=== PATIENT | female | born 1960 | race Caucasian/White ===

== ENCOUNTER → 2016-12-07 | Outpatient (CLI) | payer BC ==
[~2016-12-07] MED LIST: HYOS1TAB PO; LRT5 PO; MULT-506 PO
--- NOTE | 2016-12-07 13:58 | MAMMOGRAPHY REPORT ---
BILATERAL DIGITAL SCREENING MAMMOGRAM TOMOSYNTHESIS WITH CAD: 12/07/2016 TECHNIQUE: Breast tomosynthesis in addition to standard 2D mammography was performed. Current study was also evaluated with a Computer Aided Detection (CAD) system. COMPARISON: Comparison is made to exams dated: 12/07/2015 mammogram, 04/10/2014 mammogram, 07/29/2012 mammogram, 01/18/2012 ultrasound, 11/21/2011 ultrasound, and 11/15/2011 mammogram - [facility]. BREAST COMPOSITION: The tissue of both breasts is almost entirely fatty. FINDINGS: No suspicious masses, calcifications, or areas of architectural distortion are noted in ei ther breast. There has been no significant interval change compared to prior exams. IMPRESSION: ACR BI-RADS CATEGORY 1: NEGATIVE There is no mammographic evidence of malignancy. A 1 year screening mammogram is recommended. The pa tient will receive written notification of the results. Approximately 10% of breast cancers are not detected with mammography. A negative mammographic report should not delay biopsy if a clinically suggestive mass is present. Regla Rush M.D. ah/:12/07/2016 07:25:40 Towing Pilot: Mia WU(Chau)(M), [facility] letter sent: Normal 1/2 BI-RADS Code: ACR BI-RADS Category 1: Negative
== END | disposition home or self-care (01) ==
LOC: C.MAMM 07:12
PROVIDERS: ATTEND Obstetrics & Gynecology
DX: Z12.31 Encounter for screening mammogram for malignant neoplasm of breast (principal)

== ENCOUNTER 2017-03-17 11:40 | Emergency (ER) | payer BC ==
[~2017-03-17] VITALS: Ht 154.9 cm; Wt 73.8 kg
[2017-03-17 11:46] VITALS: TEMP 36.9; Ht 154.9 cm; Wt 73.8 kg
[2017-03-17] MEDS ORDERED: ONDANSETRON INJ 2 MG/ML 2 ML VIAL IV PRN (12:15)
[2017-03-17 12:22] LABS: URINE APPEARANCE CLOUDY (CLEAR); URINE BILIRUBIN NEG (NEG); URINE COLOR DK YELLOW; URINE EPITHELIAL CELL AUTO >30 /lpf (0-5); URINE NITRITE NEG (NEG); URINE SPECIFIC GRAVITY 1.028 (1.000-1.030); UROBILINOGEN NEG (NEG); ZZUR CULT IF INDIC CLEAN CATCH YES
[2017-03-17 12:24] LABS: MANUAL MICROSCOPIC REQUIRED? NO; REVIEW REQ? YES
[2017-03-17 12:33] LABS: URINE MUCUS PRESENT (NONE PRSENT)
[2017-03-17 12:34] LABS: BASO % 0.4 %; BASO ABS # 0.03 K/uL (0-0.2); COMPLETE YES; EOS % 0.8 %; HEMATOCRIT 44.1 % (37-47); IG% 0.3 %; LYMPH % 22.2 %; LYMPH ABS # 1.76 K/uL (1.2-3.4); MEAN CELL VOLUME 89.3 fL (80-100); MEAN CORPUSCULAR HEMOGLOBIN 30.6 pg (25-34); MEAN CORPUSCULAR HGB CONC 34.2 g/dl (32-36); MEAN PLATELET VOLUME 10.7 fL (7.4-10.4); MONO % 5.9 %; NEUT % 70.4 %; PLATELET COUNT 304 K/uL (130-400); RED BLOOD COUNT 4.94 M/uL (4.2-5.4); WHITE BLOOD COUNT 7.92 K/uL (4.8-10.8)
[2017-03-17 12:56] LABS: BUN/CREATININE RATIO 15.3 (10-20); CALCIUM 9.3 mg/dl (8.5-10.1); CREATININE 0.79 mg/dl (0.60-1.20); POTASSIUM 3.8 mmol/L (3.5-5.1)
[2017-03-17] MEDS ORDERED: OPTIRAY 320 IV PRN (13:30)
--- NOTE | 2017-03-17 15:12 | DIAGNOSTIC IMAGING REPORT ---
ABDOMEN AND PELVIS CT WITH IV AND ORAL CONTRAST CT DOSE: 436.17 mGy.cm HISTORY: Bilateral lower quadrant abdominal pain with vomiting bilateral lower quad pain, vomiting, thin stools TECHNIQUE: Multiaxial CT images of the abdomen and pelvis were performed following the use of intravenous and oral contrast. A dose lowering technique was utilized adhering to the principles of ALARA. COMPARISON STUDY: CT abdomen and pelvis 09/24/2007. FINDINGS: Mild dependent subsegmental bibasilar atelectasis. There is no pneumatosis or pneumoperitoneum identified. Imaged inferior cardiac chambers are unremarkable. The liver, spleen, gallbladder, pancreas and adrenal glands are within normal limits. Kidneys, ureters and urinary bladder are also unremarkable. Uterus and adnexa demonstrate no acute abdomen. Aorta is normal in course and caliber. No bulky adenopathy. Small duodenal diverticulum. No small bowel obstruction. There is moderate wall thickening of the colon which extends from the mid descending colon through the sigmoid and into the rectum. Mild associated surrounding inflammatory stranding. Slight ahaustral fold pattern seen within this distribution. Mild colonic diverticulosis without diverticulitis. The appendix appears normal. No ascites. Soft tissues are unremarkable. The bones appear intact. 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 IMPRESSION: 1. Moderate wall thickening with surrounding inflammatory stranding extends from the mid descending colon through the rectosigmoid compatible with colitis, likely of infectious or inflammatory etiology. Colon within this distribution demonstrates a somewhat ahaustral fold pattern. Similar pattern of disease was seen on comparison study 09/24/2007. Correlate with history of possible inflammatory bowel disease. 2. Mild colonic diverticulosis without evidence of acute diverticulitis. 3. Normal appendix. Electronically signed by: Charanjit Goldmna M.D. 03/17/2017 3:11 PM Dictated Date/Time: 03/17/2017 3:06 PM
[2017-03-17] MEDS ORDERED: METRONIDAZOLE 250 MG TAB PO STA ×2 (16:36)
[2017-03-17] MEDS ORDERED: CIPROFLOXACIN 500 MG TAB PO STA ×2 (16:36)
[2017-03-17] MEDS ORDERED: NORCO 5/325MG HOME PACK PO ONE (16:45)
[2017-03-17] MEDS ORDERED: ONDANSETRON HOME PACK 4MG OD TAB PO ONE (16:45)
[2017-03-17] MEDS ORDERED: METRONIDAZOLE 500 MG TAB PO STA ×2 (16:57→16:58)
[2017-03-17] MEDS ORDERED: ONDA4TAB10 SL (17:03)
[2017-03-17] MEDS ORDERED: HYDR-5688 PO (17:03)
[2017-03-17] MEDS ORDERED: METR-163 PO (17:03)
[2017-03-17] MEDS ORDERED: CIPR-255 PO (17:03)
[2017-03-17 17:35] VITALS: BP 147/87; PULSE 83; O2SAT 97
--- NOTE | 2017-03-17 18:17 | EMERGENCY ROOM VISIT NOTE ---
History Report prepared by Leonard: Cari Kohli Under the Supervision of: Dr. Kirby Chaparro M.D. First contact with patient: 11:51 Chief Complaint: GI ASSESSMENT Stated Complaint: INTESTINAL PROBLEMS Nursing Triage Summary: Generalized abd pain since before Thanksgiving. Severe cramping that comes and goes. Nausea, vomiting, stool "pencil thin". History of Present Illness The patient is a 56 year old female who presents to the Emergency Room with complaints of lower abdominal pain beginning two and a half weeks ago. The pain is rated at a 5/10 and she describes the pain as cramps that feel like labor pains. The patient reports that she has been going in late to work due to the pain. She reports having a recent colonoscopy that was found to be normal. The patient also reports having vomiting. She states that her stools have been "pencil-thin," but denies black or bloody stool. Pt denies fevers, chills, diaphoresis, visual changes, neck pain, chest pain, breathing difficulties, back pain, melena, hematochezia, urinary symptoms, numbness, weakness, or other complaints. Source of History: patient Onset: two and a half weeks ago Position: abdomen Symptom Intensity: rated at a 5/10 Quality: cramping Associated Symptoms: + vomiting, No fevers Review of Systems See HPI for pertinent positives and negatives. A total of ten systems were reviewed and were otherwise negative. Past Medical & Surgical Surgical Problems: (1) S/P appendectomy (2) S/P tubal ligation Family History No pertinent family history Social History Smoking Status: Never Smoker Smokeless Tobacco Use: No Alcohol Use: none Marital Status: Housing Status: lives with significant other Occupation Status: employed Current/Historical Medications Scheduled Ciprofloxacin Hcl (Cipro), 500 MG PO BID Metronidazole (Flagyl), 500 MG PO TID Ondasetron Odt (Zofran Odt), 4 MG SL Q6H Scheduled PRN Hydrocodone/Acetaminophen 5MG/325MG (Parlier 5MG/325MG), 1-2 TABS PO Q6H PRN for Pain Allergies Coded Allergies: Sulfa Drugs (Unverified Allergy, Severe, SWELLING, 03/17/17) Physical Exam Vital Signs Date Time Temp Pulse Resp B/P (MAP) Pulse Ox O2 Delivery O2 Flow Rate FiO2 03/17/17 17:35 83 147/87 97 03/17/17 15:34 80 12 130/70 03/17/17 14:34 82 140/87 98 Room Air 03/17/17 13:36 76 124/84 97 Room Air 03/17/17 12:12 102 03/17/17 11:46 36.9 93 18 152/87 97 Room Air Physical Exam GENERAL: Awake, alert, well-appearing, in no distress HENT: Normocephalic, atraumatic. Oropharynx unremarkable. EYES: Normal conjunctiva. Sclera non-icteric. NECK: Supple. No nuchal rigidity. FROM. No JVD. RESPIRATORY: Clear to auscultation. CARDIAC: Borderline tachycardia, normal rhythm. Extremities warm and well perfused. Pulses equal. ABDOMEN: Soft, non-distended. Right lower quadrant and left lower quadrant tenderness to palpation. No rebound or guarding. No masses. RECTAL: Deferred. MUSCULOSKELETAL: Chest examination reveals no tenderness. The back is symmetrical on inspection without obvious abnormality. There is no CVA tenderness to palpation. No joint edema. LOWER EXTREMITIES: Calves are equal size bilaterally and non-tender. No edema. No discoloration. NEURO: Normal sensorium. No sensory or motor deficits noted. SKIN: No rash or jaundice noted. Medical Decision & Procedures ER Provider Diagnostic Interpretation: Radiology results as stated below per my review and radiologist interpretation: ABDOMEN AND PELVIS CT WITH IV AND ORAL CONTRAST CT DOSE: 436.17 mGy.cm HISTORY: Bilateral lower quadrant abdominal pain with vomiting bilateral lower quad pain, vomiting, thin stools TECHNIQUE: Multiaxial CT images of the abdomen and pelvis were performed following the use of intravenous and oral contrast. A dose lowering technique was utilized adhering to the principles of ALARA. COMPARISON STUDY: CT abdomen and pelvis 09/24/2007. FINDINGS: Mild dependent subsegmental bibasilar atelectasis. There is no pneumatosis or pneumoperitoneum identified. Imaged inferior cardiac chambers are unremarkable. The liver, spleen, gallbladder, pancreas and adrenal glands are within normal limits. Kidneys, ureters and urinary bladder are also unremarkable. Uterus and adnexa demonstrate no acute abdomen. Aorta is normal in course and caliber. No bulky adenopathy. Small duodenal diverticulum. No small bowel obstruction. There is moderate wall thickening of the colon which extends from the mid descending colon through the sigmoid and into the rectum. Mild associated surrounding inflammatory stranding. Slight ahaustral fold pattern seen within this distribution. Mild colonic diverticulosis without diverticulitis. The appendix appears normal. No ascites. Soft tissues are unremarkable. The bones appear intact. 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 IMPRESSION: 1. Moderate wall thickening with surrounding inflammatory stranding extends from the mid descending colon through the rectosigmoid compatible with colitis, likely of infectious or inflammatory etiology. Colon within this distribution demonstrates a somewhat ahaustral fold pattern. Similar pattern of disease was seen on comparison study 09/24/2007. Correlate with history of possible inflammatory bowel disease. 2. Mild colonic diverticulosis without evidence of acute diverticulitis. 3. Normal appendix. Electronically signed by: Charanjit Goldman M.D. 03/17/2017 3:11 PM Dictated Date/Time: 03/17/2017 3:06 PM Laboratory Results 03/17/17 12:15 Red Blood Count 4.94, Mean Corpuscular Volume 89.3, Mean Corpuscular Hemoglobin 30.6, Mean Corpuscular Hemoglobin Concent 34.2, Mean Platelet Volume 10.7, Neutrophils (%) (Auto) 70.4, Lymphocytes (%) (Auto) 22.2, Monocytes (%) (Auto) 5.9, Eosinophils (%) (Auto) 0.8, Basophils (%) (Auto) 0.4, Neutrophils # (Auto) 5.58, Lymphocytes # (Auto) 1.76, Monocytes # (Auto) 0.47, Eosinophils # (Auto) 0.06, Basophils # (Auto) 0.03 03/17/17 12:15 Test 03/17/17 12:00 03/17/17 12:15 Urine Color DK YELLOW Urine Appearance CLOUDY (CLEAR) Urine pH 5.0 (4.5-7.5) Urine Specific [place] 1.028 (1.000-1.030) Urine Protein NEG (NEG) Urine Glucose (UA) NEG (NEG) Urine Ketones TRACE (NEG) Urine Occult Blood NEG (NEG) Urine Nitrite NEG (NEG) Urine Bilirubin NEG (NEG) Urine Urobilinogen NEG (NEG) Urine Leukocyte Esterase SMALL (NEG) Urine WBC (Auto) 5-10 /hpf (0-5) Urine RBC (Auto) 0-4 /hpf (0-4) Urine Hyaline Casts (Auto) 1-5 /lpf (0-5) Urine Epithelial Cells (Auto) >30 /lpf (0-5) Urine Bacteria (Auto) 2+ (NEG) Urine Pathogenic Casts /lpf (0) Urine Mucus PRESENT (NONE PRSENT) White Blood Count 7.92 K/uL (4.8-10.8) Red Blood Count 4.94 M/uL (4.2-5.4) Hemoglobin 15.1 g/dL (12.0-16.0) Hematocrit 44.1 % (37-47) Mean Corpuscular Volume 89.3 fL (80-100) Mean Corpuscular Hemoglobin 30.6 pg (25-34) Mean Corpuscular Hemoglobin Concent 34.2 g/dl (32-36) Platelet Count 304 K/uL (130-400) Mean Platelet Volume 10.7 fL (7.4-10.4) Neutrophils (%) (Auto) 70.4 % Lymphocytes (%) (Auto) 22.2 % Monocytes (%) (Auto) 5.9 % Eosinophils (%) (Auto) 0.8 % Basophils (%) (Auto) 0.4 % Neutrophils # (Auto) 5.58 K/uL (1.4-6.5) Lymphocytes # (Auto) 1.76 K/uL (1.2-3.4) Monocytes # (Auto) 0.47 K/uL (0.11-0.59) Eosinophils # (Auto) 0.06 K/uL (0-0.5) Basophils # (Auto) 0.03 K/uL (0-0.2) RDW Standard Deviation 40.1 fL (36.4-46.3) RDW Coefficient of Variation 12.4 % (11.5-14.5) Immature Granulocyte % (Auto) 0.3 % Immature Granulocyte # (Auto) 0.02 K/uL (0.00-0.02) Anion Gap 6.0 mmol/L (3-11) Est Creatinine Clear Calc Drug Dose 73.0 ml/min Estimated GFR () 97.0 Estimated GFR (Non- 83.7 BUN/Creatinine Ratio 15.3 (10-20) Calcium Level 9.3 mg/dl (8.5-10.1) Total Bilirubin 0.6 mg/dl (0.2-1) Direct Bilirubin 0.1 mg/dl (0-0.2) Aspartate Amino Transf (AST/SGOT) 23 U/L (15-37) Alanine Aminotransferase (ALT/SGPT) 32 U/L (12-78) Alkaline Phosphatase 104 U/L (45-117) Total Protein 7.7 gm/dl (6.4-8.2) Albumin 4.0 gm/dl (3.4-5.0) Lipase 153 U/L (73-393) Laboratory results reviewed by me Medications Administered Medications (Trade) Dose Ordered Sig/Imani Route Start Time Stop Time Status Last Admin Dose Admin Ciprofloxacin (Cipro Tab) 500 mg NOW STAT PO 03/17/17 16:36 03/17/17 16:38 DC 03/17/17 16:50 500 MG Ondansetron HCl (ZOFRAN ODT 4MG Home Pack) 1 homepack UD ONCE PO 03/17/17 16:45 03/17/17 16:46 DC 03/17/17 16:51 1 HOMEPACK Acetaminophen/ Hydrocodone Bitart (Parlier 5/325mg Home Pack) 1 homepack UD ONCE PO 03/17/17 16:45 03/17/17 16:46 DC 03/17/17 16:53 1 HOMEPACK Ciprofloxacin (Cipro Tab) 500 mg NOW STAT PO 03/17/17 16:36 03/17/17 16:38 DC 03/17/17 16:50 500 MG Metronidazole (Flagyl Tab) 500 mg NOW STAT PO 03/17/17 16:57 03/17/17 16:58 DC 03/17/17 17:01 500 MG Metronidazole (Flagyl Tab) 500 mg NOW STAT PO 03/17/17 16:58 03/17/17 16:59 DC 03/17/17 17:01 500 MG ED Course 1203: The patient was evaluated in room C7. A complete history and physical exam was performed. 1215: Ordered Zofran Inj 4 mg IV. 1636: Ordered Flagyl Tab 500 mg PO, Cipro Tab 500 mg PO, Flagyl Tab 500 mg PO, Cipro Tab 500 mg PO. 1637: Discussed the patient's case with Dr. Carter. Dr. Carter recommended Cipro Flagyl and that the patient follow-up on Sunday. 1645: Ordered Hydrocodone Bitart Acetaminophen 1 homepack PO, Ondansetron HCl 1 homepack PO. 1650: I reevaluated the patient. Discussed results and discharge instructions: She verbalized understanding and agreement. The patient is ready for discharge. Medical Decision Triage Nursing notes reviewed. The patient's presentation and history were concerning for abdominal pain. Etiologies such as diverticulitis, Obstruction, inflammatory bowel disease, renal colic, PUD, biliary pathology, pancreatitis, mesenteric ischemia, aortic pathology, infections, genitourinary, UTI, perforated viscus, appendicitis, as well as others were entertained. The patient was evaluated. Abdominal examination as above. She is tender in the lower quadrant. The patient underwent CT imaging. Blood work was unremarkable. CT imaging didn't reveal evidence of colitis. I did consult with gastroenterology. Cipro, Flagyl, and symptomatically treatment was recommended with close outpatient follow-up. The patient will contact the office on Sunday. She was given Cipro, Flagyl, Zofran, and Parlier to use . If she worsens she will be back. Patient felt very comfortable. I gave my usual and customary discussion regarding this issue. By the evaluation outlined above other emergent etiologies such as those listed in the differential, as well as others, were deemed relatively unlikely. The patient was educated about the findings as listed above. All questions were answered and the patient was pleased with the treatment. Return instructions were outlined and the patient was discharged in stable condition. The patient was referred to GI for follow-up for a recheck of the current condition. Medication Reconcilliation Current Medication List: was personally reviewed by me Blood Pressure Screening Patient's blood pressure: Elevated blood pressure Blood pressure disposition: Elevated BP felt to be situational Consults Time Called: 1553 Consulting Physician: Dr. Carter- [facility] GI Returned Call: [phone] Discussed the patient's case with Dr. Carter. Dr. Carter recommended Cipro Flagyl and that the patient follow-up on Sunday. Impression Primary Impression: Colitis Scribe Attestation The scribe's documentation has been prepared under my direction and personally reviewed by me in its entirety. I confirm that the note above accurately reflects all work, treatment, procedures, and medical decision making performed by me. Departure Information Dispostion Home / Self-Care Prescriptions Ondasetron Odt (ZOFRAN ODT) 4 Mg Tab 4 MG SL Q6H for Nausea, #6 TAB Prov: Kirby Chaparro MD 03/17/17 Hydrocodone/Acetaminophen 5MG/325MG (Parlier 5MG/325MG) Tab 1-2 TABS PO Q6H Y for Pain, #15 TAB Prov: Kirby Chaparro MD 03/17/17 Metronidazole (Flagyl) 500 Mg Tab 500 MG PO TID, #28 TAB Prov: Kirby Chaparro MD 03/17/17 Ciprofloxacin Hcl (CIPRO) 500 Mg Tab 500 MG PO BID, #18 TAB Prov: Kirby Chaparro MD 03/17/17 Referrals Nichelle Nieto M.D. (PCP) Rodolfo Edgar M.D. Maria A Appiah M.D. Forms HOME CARE DOCUMENTATION FORM, IMPORTANT VISIT INFORMATION Patient Instructions My [facility] [address] Additional Instructions Ciprofloxacin(Cipro) 500mg: Take one pill twice daily for 10 days for your bowel infection. All antibiotics can cause diarrhea. If this occurs and you feel worse or it does not resolve in 1-2 days follow up with your doctor or return to the Emergency Department as this could be signs of serious underlying problems. If you experience any pain in your tendons or any tendon injury return to the ER for re-evaluation. Any medication can cause an allergic reaction, stop the pills immediately and return to the ER for rash, hives, breathing difficulties, or swelling. Metronidazole(Flagyl) 500mg: Take one pill 3 times daily for 10 days for your bowel infection. DO NOT drink alcohol or take alcohol containing products with this medication. Any medication can cause an allergic reaction, stop the pills immediately and return to the ER for rash, hives, breathing difficulties, or swelling. Hydrocodone/acetaminophen 5/325mg: Take 1-2 pills every 6 hours as needed for pain. Avoid additional Acetaminophen/Tylenol, alcohol, operating machinery or dangerous equipment, working on ladders or roofs, DRIVING, or situations where being under the influence may be dangerous. It is recommended to use a stool softener such as Colace, 100mg twice daily while taking this medication to avoid constipation. Ibuprofen(Motrin, Advil) may be used for fever or pain. Use 600mg every six hours as needed. Take with food. Avoid using more than 2400mg in a 24 hour period. Do not use 2400mg per day for more than three consecutive days without physician direction. Prolonged inappropriate use can lead to stomach upset or ulcers. Zofran 4 mg oral dissolving tablets: take one tablet and allow it to melt in your mouth every 4 hours as needed for nausea. Rest and drink plenty of fluids as tolerated. Slow sips of water or sports drinks are recommended instead of large amounts all at once. Continue current medications. Once your stomach is settled start with a clear liquid diet (jello, soup broth, etc.) and then advance as tolerated. You should avoid full, heavy meals for about 24 hrs from the time your symptoms resolved. Return to the ER immediately for worsening or persistent abdominal pain, vomiting, fevers, chest pains, difficulty breathing, black or bloody stools, worsening of your condition, or as needed. Follow up with your GI doctor on Sunday for a recheck of your current condition.
--- NOTE | 2017-03-20 18:46 | Pharmacy Progress Note ---
ED Pharmacist Culture FollowUp Date of Service: Mar 20, 2017. Patient was sent home with a prescription for ciprofloxacin for GI infection, Enterococcus facecalis >100,000 CFU/ml intermediate susceptibility to ciprofloxacin. Patient did not report urinary symptoms during stay and urine analysis >30 epithelial cells, ? possible contaminate as patient having "pencil- like stool". Left message with patient to call back. Plan to discuss if any urinary symptoms present - Discussed with Dr. Pompa no plan to add additional therapy at this time.
== END 2017-03-17 17:36 | disposition home or self-care (01) ==
LOC: C.EDB 11:41 → C.EDC 17:36
DX: K52.9 Noninfective gastroenteritis and colitis, unspecified (principal); Z98.51 Tubal ligation status; Z98.890 Other specified postprocedural states

== ENCOUNTER → 2017-10-29 | Outpatient (CLI) | payer OTHER ==
[~2017-10-29] MED LIST changes: +CIPR-255 PO; -HYOS1TAB PO; -LRT5 PO; -MULT-506 PO
== END | disposition home or self-care (01) ==
LOC: C.PAPS 13:27
PROVIDERS: ATTEND Obstetrics & Gynecology
DX: Z12.4 Encounter for screening for malignant neoplasm of cervix (principal)